=== PATIENT | female | born 1975 | race Caucasian/White ===

== ENCOUNTER 2016-12-31 15:17 | Emergency (ER) | payer MEDICAID ==
[~2016-12-31] VITALS: Ht 152.4 cm; Wt 69.2 kg
[~2016-12-31 15:17] MED LIST: ATI1 PO; BUS5 PO; IBUPROFEN400 MG PO; MOT800 PO; PRI20 PO; ZOC20 PO
[2016-12-31 19:13] VITALS: BP 128/71
== END 2016-12-31 19:13 | disposition home or self-care (01) ==
LOC: ED 15:17
DX: N39.0 Urinary tract infection, site not specified (principal); R19.7 Diarrhea, unspecified; Z90.49 Acquired absence of other specified parts of digestive tract
CPT/HCPCS: J1885

== ENCOUNTER 2018-01-14 23:28 | Emergency (ER) | payer MEDICAID ==
[~2018-01-14] VITALS: Ht 152.4 cm; Wt 73.7 kg
[2018-01-14 23:43] VITALS: Ht 152.4 cm; Wt 73.7 kg
[2018-01-15 00:29] LABS: BASOPHIL % 0.7 % (0-2); PLATELET COUNT 315 x10^3mcL (130-400); RED CELL DISTRIBUTION WIDTH 12.2 % (11.5-14.5)
[2018-01-15 00:39] LABS: CALCIUM 8.7 mg/dL (8.5-10.1); CHLORIDE SERUM 104 mmol/L (98-107); CREATININE SERUM 0.7 mg/dL (0.6-1.0); GFR1 > 60 mL/min; GLUCOSE SERUM 108 mg/dL (74-106); POTASSIUM SERUM 4.1 mmol/L (3.5-5.1); SODIUM SERUM 138 mmol/L (136-145)
[2018-01-15 00:41] LABS: microscopic required? YES; urine erythrocyte NEGATIVE (NEGATIVE)
[2018-01-15 00:51] LABS: ALBUMIN 3.5 g/dL (3.4-5.0); ALKALINE PHOSPHATASE 128 U/L (46-116); ALT/SGPT 27 U/L (14-59); AMYLASE 64 U/L (25-115); AST/SGOT 21 U/L (15-37); BILIRUBIN TOTAL 0.6 mg/dL (0.20-1.00); LIPASE 145 IU/L (73-393); TOTAL PROTEIN, SERUM 7.9 g/dL (6.4-8.2)
[2018-01-15 02:22] VITALS: BP 112/78
== END 2018-01-15 02:22 | disposition home or self-care (01) ==
LOC: ED 23:28
PROVIDERS: Emergency Medicine
DX: R10.13 Epigastric pain (principal); R11.0 Nausea; Z90.49 Acquired absence of other specified parts of digestive tract
CPT/HCPCS: 83880; J1885; J2405; J7030; Q0162

== ENCOUNTER 2018-01-16 01:12 | Emergency (ER) | payer MEDICAID ==
[2018-01-16 03:08] LABS: BASOPHIL % 0.3 % (0-2); PLATELET COUNT 268 x10^3mcL (130-400); RED CELL DISTRIBUTION WIDTH 12.4 % (11.5-14.5)
[2018-01-16 03:11] LABS: CALCIUM 8.3 mg/dL (8.5-10.1); CHLORIDE SERUM 109 mmol/L (98-107); CREATININE SERUM 0.6 mg/dL (0.6-1.0); GFR1 > 60 mL/min; GLUCOSE SERUM 118 mg/dL (74-106); POTASSIUM SERUM 4.6 mmol/L (3.5-5.1); SODIUM SERUM 138 mmol/L (136-145)
[2018-01-16 03:17] LABS: ALKALINE PHOSPHATASE 103 U/L (46-116); ALT/SGPT 24 U/L (14-59); AMYLASE 50 U/L (25-115); AST/SGOT 22 U/L (15-37); BILIRUBIN TOTAL 0.6 mg/dL (0.20-1.00); LIPASE 99 IU/L (73-393); TOTAL PROTEIN, SERUM 7.1 g/dL (6.4-8.2)
[2018-01-16 03:18] LABS: ALBUMIN 3.2 g/dL (3.4-5.0)
[2018-01-16 05:18] VITALS: BP 100/68
== END 2018-01-16 05:18 | disposition home or self-care (01) ==
LOC: ED 01:12
PROVIDERS: Emergency Medicine
DX: K21.9 Gastro-esophageal reflux disease without esophagitis (principal); N39.0 Urinary tract infection, site not specified
CPT/HCPCS: 83880; C9113; J2765; J3490

== ENCOUNTER 2018-07-15 02:54 | Emergency (ER) | payer MEDICAID ==
[~2018-07-15] VITALS: Ht 152.4 cm; Wt 71.7 kg
[2018-07-15 03:00] VITALS: Ht 152.4 cm; Wt 71.7 kg
[2018-07-15 05:34] LABS: BASOPHIL % 0.3 % (0-2); PLATELET COUNT 270 x10^3mcL (130-400); RED CELL DISTRIBUTION WIDTH 12.4 % (11.5-14.5)
[2018-07-15 05:37] VITALS: BP 104/59
[2018-07-15 05:43] LABS: CALCIUM 8.5 mg/dL (8.5-10.1); CARBON DIOXIDE 29.9 mmol/L (21-32); CHLORIDE SERUM 103 mmol/L (98-107); CREATININE SERUM 0.7 mg/dL (0.6-1.0); GFR1 > 60 mL/min; GLUCOSE SERUM 134 mg/dL (74-106); SODIUM SERUM 139 mmol/L (136-145)
[2018-07-15 05:47] LABS: ALBUMIN 3.7 g/dL (3.4-5.0); ALKALINE PHOSPHATASE 104 U/L (46-116); ALT/SGPT 19 U/L (14-59); AST/SGOT 14 U/L (15-37); BILIRUBIN TOTAL 1.09 mg/dL (0.20-1.00); LIPASE 163 IU/L (73-393); TOTAL PROTEIN, SERUM 8.4 g/dL (6.4-8.2)
== END 2018-07-15 06:43 | disposition home or self-care (01) ==
LOC: ED 02:54
PROVIDERS: Emergency Medicine
DX: K29.70 Gastritis, unspecified, without bleeding (principal); G43.909 Migraine, unspecified, not intractable, without status migrainosus; Z86.73 Personal history of transient ischemic attack (TIA), and cerebral infarction without residual deficits; Z90.49 Acquired absence of other specified parts of digestive tract
CPT/HCPCS: J2270; J2765; J7030; Q0162

== ENCOUNTER 2018-08-23 20:31 | Emergency (ER) | payer MEDICAID ==
[~2018-08-23] VITALS: Ht 152.4 cm; Wt 71.2 kg
[2018-08-23 20:43] VITALS: Ht 152.4 cm; Wt 71.2 kg
[2018-08-23 22:14] LABS: microscopic required? NO
[2018-08-23 22:18] LABS: urine erythrocyte NEGATIVE (NEGATIVE)
[2018-08-24 00:38] VITALS: BP 106/65
== END 2018-08-24 00:38 | disposition home or self-care (01) ==
LOC: ED 20:31
PROVIDERS: Emergency Medicine
DX: M54.9 Dorsalgia, unspecified (principal); G43.909 Migraine, unspecified, not intractable, without status migrainosus; Z86.73 Personal history of transient ischemic attack (TIA), and cerebral infarction without residual deficits; Z90.49 Acquired absence of other specified parts of digestive tract
CPT/HCPCS: J1885

== ENCOUNTER 2019-07-12 00:57 | Emergency (ER) | payer BC, MEDICAID ==
[~2019-07-12] VITALS: Ht 152.4 cm; Wt 71.7 kg
[2019-07-12 01:01] VITALS: Ht 152.4 cm; Wt 71.7 kg
[2019-07-12 02:17] LABS: BASOPHIL % 0.1 % (0-2); PLATELET COUNT 268 x10^3mcL (130-400); RED CELL DISTRIBUTION WIDTH 12.3 % (11.5-14.5)
[2019-07-12 02:23] LABS: CALCIUM 8.4 mg/dL (8.5-10.1); CARBON DIOXIDE 24.6 mmol/L (21-32); CHLORIDE SERUM 101 mmol/L (98-107); CREATININE SERUM 0.6 mg/dL (0.6-1.0); GFR1 > 60 mL/min; GLUCOSE SERUM 112 mg/dL (74-106); POTASSIUM SERUM 3.4 mmol/L (3.5-5.1); SODIUM SERUM 137 mmol/L (136-145)
[2019-07-12 02:29] LABS: ALBUMIN 3.6 g/dL (3.4-5.0); ALKALINE PHOSPHATASE 100 U/L (46-116); ALT/SGPT 19 U/L (14-59); AST/SGOT 10 U/L (15-37); BILIRUBIN TOTAL 0.89 mg/dL (0.20-1.00); CHOLESTEROL 191 mg/dL (<200); HDL CHOLESTEROL 48 mg/dL (40-60); LIPASE 128 IU/L (73-393); TOTAL PROTEIN, SERUM 8.1 g/dL (6.4-8.2); TRIGLYCERIDES 183 mg/dL (<150)
[2019-07-12 03:45] VITALS: BP 102/53
[2019-07-12 04:27] LABS: UA SPECIFIC GRAVITY 1.025 (1.005-1.035); microscopic required? YES; urine erythrocyte TRACE (NEGATIVE)
== END 2019-07-12 03:45 | disposition home or self-care (01) ==
LOC: ED 00:57
PROVIDERS: Specialist
DX: R10.13 Epigastric pain (principal); R11.0 Nausea; G43.909 Migraine, unspecified, not intractable, without status migrainosus; Z98.890 Other specified postprocedural states
CPT/HCPCS: 36415; J1885; Q0162

== ENCOUNTER 2019-08-23 20:48 | Emergency (ER) | payer BC, MEDICAID ==
[~2019-08-23] VITALS: Ht 152.4 cm; Wt 68.9 kg
[2019-08-23 20:54] VITALS: Ht 152.4 cm; Wt 68.9 kg
[2019-08-24 00:36] VITALS: BP 117/78
== END 2019-08-24 00:36 | disposition home or self-care (01) ==
LOC: ED 20:48
DX: M54.2 Cervicalgia (principal); M54.5 Low back pain; V49.9XXA Car occupant (driver) (passenger) injured in unspecified traffic accident, initial encounter; Y93.I9 Activity, other involving external motion; Y92.413 State road as the place of occurrence of the external cause; Y99.8 Other external cause status
CPT/HCPCS: J1885

== ENCOUNTER 2019-10-13 13:37 | Emergency (ER) | payer BC, MEDICAID ==
[~2019-10-13] VITALS: Ht 152.4 cm; Wt 70.8 kg
[2019-10-13 14:29] VITALS: Ht 152.4 cm; Wt 70.8 kg
[2019-10-13 17:32] VITALS: BP 137/79
== END 2019-10-13 17:32 | disposition home or self-care (01) ==
LOC: ED 13:37
DX: S82.62XA Displaced fracture of lateral malleolus of left fibula, initial encounter for closed fracture (principal); G43.909 Migraine, unspecified, not intractable, without status migrainosus; Z86.73 Personal history of transient ischemic attack (TIA), and cerebral infarction without residual deficits; X50.1XXA Overexertion from prolonged static or awkward postures, initial encounter; Y93.89 Activity, other specified; Y92.89 Other specified places as the place of occurrence of the external cause; Y99.8 Other external cause status

== ENCOUNTER 2020-10-08 01:39 | Emergency (ER) | payer MEDICAID ==
[~2020-10-08] VITALS: Ht 167.6 cm; Wt 72.6 kg
[2020-10-08 01:46] VITALS: Ht 167.6 cm; Wt 72.6 kg
[2020-10-08 02:23] LABS: PLATELET COUNT 321 x10^3mcL (179-408); RED CELL DISTRIBUTION WIDTH 13.3 % (12.3-17.7)
[2020-10-08 02:35] LABS: CALCIUM 9.3 mg/dL (8.5-10.1); CARBON DIOXIDE 31.8 mmol/L (21-32); CHLORIDE SERUM 102 mmol/L (98-107); CREATININE SERUM 0.8 mg/dL (0.6-1.0); GFR1 > 60 mL/min; GLUCOSE SERUM 104 mg/dL (74-106); POTASSIUM SERUM 3.9 mmol/L (3.5-5.1); SODIUM SERUM 139 mmol/L (136-145)
[2020-10-08 02:39] LABS: ALBUMIN 3.8 g/dL (3.4-5.0); ALKALINE PHOSPHATASE 101 U/L (46-116); ALT/SGPT 26 U/L (14-59); AST/SGOT 13 U/L (15-37); BILIRUBIN TOTAL 0.84 mg/dL (0.20-1.00); LIPASE 145 IU/L (73-393)
[2020-10-08 02:40] LABS: TOTAL PROTEIN, SERUM 8.3 g/dL (6.4-8.2)
[2020-10-08 03:36] VITALS: BP 121/41
== END 2020-10-08 03:36 | disposition home or self-care (01) ==
LOC: ED 01:39
PROVIDERS: Student in an Organized Health Care Education/Training Program
DX: K29.70 Gastritis, unspecified, without bleeding (principal); G43.909 Migraine, unspecified, not intractable, without status migrainosus; Z86.73 Personal history of transient ischemic attack (TIA), and cerebral infarction without residual deficits
CPT/HCPCS: J1885